=== PATIENT | female | born 1980 | race Caucasian/White ===

== ENCOUNTER 2020-06-15 01:28 | Emergency (ER) | payer BC ==
[~2020-06-15] VITALS: Ht 163 cm; Wt 79.4 kg
[2020-06-15] MEDS ORDERED: TRAZ-227 (01:38)
[2020-06-15] MEDS ORDERED: LACTATED RINGERS 1,000 ML IV ONE (01:45)
[2020-06-15] MEDS ORDERED: ONDANSETRON 4 MG/2 ML (SDV) Z0FRAN IVP ONE (01:45)
[2020-06-15 01:48] LABS: BILIRUBIN,URINE NEGATIVE (NEGATIVE); CLARITY,URINE CLEAR; COLOR,URINE YELLOW; GLUCOSE, URINE (UA) NEGATIVE (NEGATIVE); KETONES,URINE NEGATIVE (NEGATIVE); LEUKOCYTE ESTERASE ,URINE 1+ (NEGATIVE); NITRITE,URINE POSITIVE (NEGATIVE); PH,URINE 5.5 (5-9); PROTEIN,URINE 1+ (NEGATIVE)
[2020-06-15 01:56] LABS: BACTERIA,URINE LARGE /HPF; SQUAMOUS EPITHELIAL CELL,UR 25-50 /HPF
--- NOTE | 2020-06-15 01:57 | ED GU-Female ---
General Chief Complaint: - Urinary Stated Complaint: KIDNEY PAIN,VOMITING,FEVER 99. Nursing Triage Note: c/o constant left flank pain x2hrs. Nursing Sepsis Screen: No Definite Risk Source: patient Exam Limitations: no limitations (SHAGUFTA ARELLANO MED STUDENT) History of Present Illness Date Seen by Provider: Jun 15, 2020 Time Seen by Provider: 01:50 Initial Comments Pt is a 40yo female who presents to the ED complaining of 10/10 L flank pain. She states this started around 3 hours ago is stabbing in nature and radiates to her groin. Nothing makes it better, movement makes it worse. She reports she has had a kidney stone in the past and had surgery to remove it and this feels similar. She also reports having a kidney infection last year. Denies chest pain, SOB, constipation or diarrhea. Also denies dysuria or hematuria. She reports feeling feverish and her temperature at home was 100. Also has been nauseous and vomited. She has been trying to get and her LMP was about 2.5 weeks ago. Timing/Duration: just prior to arrival Severity/Quality: severe Location: left flank Radiation: LLQ, groin (left) Activities at Onset: none Modifying Factors: Improves With Movement Associated Symptoms: fever/chills, nausea/vomiting (SHAGUFTA ARELLANO MED KATRIN DENT) Allergies and Home Medications Allergies Coded Allergies: No Known Allergies (Verified Allergy, Unknown, 03/05/08) Patient Home Medication List Home Medication List Reviewed: Yes (WENDI MEJIAS MD) Review of Systems Review of Systems Constitutional: chills, fever EENTM: no symptoms reported Respiratory: No short of breath Cardiovascular: No chest pain, No edema Gastrointestinal: abdominal pain (LLQ/groin); No constipation, No diarrhea; nausea, vomiting Genitourinary: denies burning, denies dysuria; flank pain (left); denies hematuria Musculoskeletal: no symptoms reported Skin: no symptoms reported Psychiatric/Neurological: No Symptoms Reported Endocrine: No Symptoms Reported Hematologic/Lymphatic: No Symptoms Reported (SHAGUFTA ARELLANO MED STUDENT) Past Srkuibq-Jzyhru-Nzilci Hx Patient Social History Alcohol Use: Rarely Uses Smoking Status: Current Everyday Smoker Type Used: Cigarettes 2nd Hand Smoke Exposure: Yes Recent Infectious Disease Expo: No Recent Hopitalizations: No (ARELLANO,SHAGUFTA,MED STUDENT) Immunizations Up To Date Tetanus Booster (TDap): Unknown (SHAGUFTA ARELLAON MED STUDENT) Seasonal Allergies Seasonal Allergies: No (SHAGUFTA ARELLANO MED STUDENT) Past Medical History Surgeries: Yes (KIDNEY STONES) Respiratory: No Cardiac: No Neurological: No : No Reproductive Disorders: No Genitourinary: Yes Kidney Stones Gastrointestinal: No Musculoskeletal: No Endocrine: No HEENT: No Cancer: No Psychosocial: No Integumentary: No Blood Disorders: No (SHAGUFTA ARELLANO MED STUDENT) Physical Exam Vital Signs Vital Signs - First Documented 06/15/20 01:32 Temp 36.5 Pulse 84 Resp 20 B/P (MAP) 135/85 (102) Pulse Ox 99 O2 Delivery Room Air (WENDI MEJIAS MD) Vital Signs Capillary Refill : Less Than 3 Seconds (SHAGUFTA ARELLANO MED STUDENT) Height, Weight, BMI Height: '" Weight: lbs. oz. kg; 29.00 BMI Method: General Appearance: WD/WN, moderate distress, other (appears very uncomfortable) HEENT: PERRL/EOMI Neck: non-tender, full range of motion Cardiovascular: regular rate, rhythm, no murmur Respiratory: lungs clear, no respiratory distress, no accessory muscle use Gastrointestinal: normal bowel sounds, soft; No guarding, No rebound; tender ness (with deep palpation of LLQ) Back: CVA tenderness (L) Extremities: non-tender, no pedal edema, no calf tenderness, normal capillary refill Neurologic/Psychiatric: no motor/sensory deficits, alert, normal mood/affect, oriented x 3 Skin: normal color, warm/dry (SHAGUFTA ARELLANO MED STUDENT) Progress/Results/Core Measures Suspected Sepsis Recent Fever Within 48 Hours: No Infection Criteria Present: None New/Unexplained Altered Menta: No Sepsis Screen: No Definite Risk SIRS Temperature: Pulse: 84 Respiratory Rate: 20 Laboratory Tests 06/15/20 01:45: White Blood Count 15.9H Blood Pressure 135 /85 Mean: 102 Laboratory Tests 06/15/20 01:45: Creatinine 0.86, Platelet Count 276, Total Bilirubin 0.3 (SHAGUFTA ARELLANO MED STUDENT) Results/Orders Lab Results Laboratory Tests Test 06/15/20 01:36 06/15/20 01:45 06/15/20 03:45 Range/Units Urine Color YELLOW YELLOW Urine Clarity CLEAR CLEAR Urine pH 5.5 6.0 5-9 Urine Specific [place] >=1.030 1.025 H 1.016-1.022 Urine Protein 1+ H TRACE H NEGATIVE Urine Glucose (UA) NEGATIVE NEGATIVE NEGATIVE Urine Ketones NEGATIVE NEGATIVE NEGATIVE Urine Nitrite POSITIVE H NEGATIVE NEGATIVE Urine Bilirubin NEGATIVE NEGATIVE NEGATIVE Urine Urobilinogen 0.2 0.2 < = 1.0 MG/DL Urine Leukocyte Esterase 1+ H 1+ H NEGATIVE Urine RBC (Auto) 2+ H 2+ H NEGATIVE Urine RBC 10-25 H 10-25 H /HPF Urine WBC 5-10 H 10-25 H /HPF Urine Squamous Epithelial Cells 25-50 H 2-5 /HPF Urine Crystals NONE NONE /LPF Urine Bacteria LARGE H FEW H /HPF Urine Casts NONE NONE /LPF Urine Mucus NEGATIVE NEGATIVE /LPF Urine Culture Indicated YES YES White Blood Count 15.9 H 4.3-11.0 10^3/uL Red Blood Count 4.29 3.80-5.11 10^6/uL Hemoglobin 13.6 11.5-16.0 g/dL Hematocrit 40 35-52 % Mean Corpuscular Volume 92 80-99 fL Mean Corpuscular Hemoglobin 32 25-34 pg Mean Corpuscular Hemoglobin Concent 34 32-36 g/dL Red Cell Distribution Width 13.0 10.0-14.5 % Platelet Count 276 130-400 10^3/uL Mean Platelet Volume 11.3 9.0-12.2 fL Immature Granulocyte % (Auto) 1 % Neutrophils (%) (Auto) 73 42-75 % Lymphocytes (%) (Auto) 17 12-44 % Monocytes (%) (Auto) 8 0-12 % Eosinophils (%) (Auto) 1 0-10 % Basophils (%) (Auto) 1 0-10 % Neutrophils # (Auto) 11.6 H 1.8-7.8 10^3/uL Lymphocytes # (Auto) 2.8 1.0-4.0 10^3/uL Monocytes # (Auto) 1.2 H 0.0-1.0 10^3/uL Eosinophils # (Auto) 0.2 0.0-0.3 10^3/uL Basophils # (Auto) 0.1 0.0-0.1 10^3/uL Immature Granulocyte # (Auto) 0.1 0.0-0.1 10^3/uL Neutrophils % (Manual) 75 % Lymphocytes % (Manual) 19 % Monocytes % (Manual) 5 % Eosinophils % (Manual) 1 % Blood Morphology Comment NORMAL Sodium Level 137 135-145 MMOL/L Potassium Level 3.9 3.6-5.0 MMOL/L Chloride Level 108 H 98-107 MMOL/L Carbon Dioxide Level 16 L 21-32 MMOL/L Anion Gap 13 5-14 MMOL/L Blood Urea Nitrogen 8 7-18 MG/DL Creatinine 0.86 0.60-1.30 MG/DL Estimat Glomerular Filtration Rate > 60 BUN/Creatinine Ratio 9 Glucose Level 107 H 70-105 MG/DL Calcium Level 9.0 8.5-10.1 MG/DL Corrected Calcium 8.9 8.5-10.1 MG/DL Total Bilirubin 0.3 0.1-1.0 MG/DL Aspartate Amino Transf (AST/SGOT) 11 5-34 U/L Alanine Aminotransferase (ALT/SGPT) 16 0-55 U/L Alkaline Phosphatase 69 40-136 U/L Total Protein 6.6 6.4-8.2 GM/DL Albumin 4.1 3.2-4.5 GM/DL Serum Test, Qualitative NEGATIVE NEGATIVE (WENDI MEJIAS MD) My Orders Orders - WENDI MEJIAS MD Cbc With Automated Diff (06/15/20 01:43) Comprehensive Metabolic Panel (06/15/20 01:43) Ua Culture If Indicated (06/15/20 01:43) Ed Iv/Invasive Line Start (06/15/20:43) Lactated Ringers (Lr 1000 Ml Iv Solution (06/15/20 01:45) Ondansetron Injection (Zofran Injectio (06/15/20 01:45) Fentanyl Inj (Sublimaze Injection) (06/15/20 02:00) Urine Culture (06/15/20 01:36) Manual Differential (06/15/20 01:45) Hcg,Qualitative Serum (06/15/20 02:22) Morphine Injection (Morphine Injection (06/15/20 02:26) Ceftriaxone For Iv Use (Rocephin For I (06/15/20 02:30) Ct Abd/Pelvis Wo(Kidney Stone) (06/15/20 02:27) Ketorolac Injection (Toradol Injection) (06/15/20 02:45) Ua Culture If Indicated (06/15/20 03:38) Urine Culture (06/15/20 03:45) Morphine Injection (Morphine Injection (06/15/20 04:16) (WENDI MEJIAS MD) Medications Given in ED Current Medications Medications Dose Ordered Sig/Ced Route Start Time Stop Time Status Last Admin Dose Admin Ceftriaxone Sodium 1000 mg/ Sterile Water 10 ml @ 200 mls/hr ONCE ONCE IV 06/15/20 02:30 06/15/20 02:32 DC 06/15/20 02:39 200 MLS/HR Fentanyl Citrate 50 mcg ONCE ONCE IVP 06/15/20 02:00 06/15/20 02:01 DC 06/15/20 01:58 50 MCG Ketorolac Tromethamine 30 mg ONCE ONCE IVP 06/15/20 02:45 06/15/20 02:46 DC 06/15/20 02:39 30 MG Lactated Ringer's 1,000 ml @ 0 mls/hr Q0M ONCE IV 06/15/20 01:45 06/15/20 01:46 DC 06/15/20 01:58 0 MLS/HR Ondansetron HCl 8 mg ONCE ONCE IVP 06/15/20 01:45 06/15/20 01:46 DC 06/15/20 02:00 8 MG (WENDI MEJIAS MD) Vital Signs/I&O 06/15/20 06/15/20 01:32 04:30 Temp 36.5 37.3 Pulse 84 79 Resp 20 16 B/P (MAP) 135/85 (102) 127/82 Pulse Ox 99 98 O2 Delivery Room Air Room Air (WENDI MEJIAS MD) Vital Signs/I&O Capillary Refill : Less Than 3 Seconds (SHAGUFTA ARELLANO,MED STUDENT) Blood Pressure Mean: 102 Progress Note #1: Time: 04:05 Progress Note Patient was found to have pyuria in context of leukocytosis and symptoms suspicious for ureteral stone. CT was obtained demonstrating a 7 mm obstructing stone in the left proximal ureter with perinephric stranding. She likely has associated pyelonephritis. She did not meet septic criteria. Rocephin was administered. Pain was initially treated with fentanyl. Residual pain was treated with morphine and Toradol. Zofran was given for nausea. She received IV fluids. I discussed the case with Dr. Martinez. He is not available this weekend and recommended transfer. Case was reviewed with Dr. Ramirez, urologist at [facility] in [place]. He is agreeable to transfer. Dr. Ortega is the accepting hospitalist. Progress Note #2: Time: 04:22 Progress Note Patient requested transfer by private vehicle. Her will drive her. Vital signs are stable. She would like additional treatment of pain prior to departure. An additional dose of morphine has been ordered. (WENDI MEJIAS MD) Diagnostic Imaging Diagonstic Imaging: CT Plain Films/CT/US/NM/MRI: abdomen, pelvis Comments CT abdomen and pelvis viewed by me and stat rad report reviewed. There is a 7 mm obstructing stone in the left proximal ureter with hydronephrosis and perinephric stranding. (WENDI MEJIAS MD) Departure Impression Primary Impression: Hydronephrosis with urinary obstruction due to ureteral calculus Additional Impressions: Pyelonephritis Nausea and vomiting Qualified Codes: R11.2 - Nausea with vomiting, unspecified Disposition: 02 XFER SHT-TRM HOSP Condition: Improved Transfer Transfer Reason: Exceeds level of care Time Spoke to Accepting Phy: 03:40 Transfer Progress Notes Transfer accepted by Dr. Ortega at [facility] in [place] Transfer Time: 04:30 Transfer Facility: [facility] Method of Transfer: EMS (WENDI MEJIAS MD) Departure-Patient Inst. Referrals: SHELLEY MICHAEL MD (PCP/Family) Primary Care Physician Medical Student Attestation and Attending Note: I have personally interviewed and examined this patient along with Shagufta Arellano, MS 4. I have reviewed student documentation including history, physical, and assessments. I agree with the documentation except where otherwise noted. Exam: General: Alert, oriented, mild distress, well developed HEENT: Normocephalic and atraumatic Heart: Regular rate and rhythm without murmur Lungs: Clear to auscultation bilaterally with normal effort Abdomen: Soft, tenderness in the left flank and left abdomen, nondistended, normal bowel sounds Neuropsych: Alert, oriented, no focal deficits Skin: Warm and dry without rashes (WENDI MEJIAS MD) SHAGUFTA ARELLANO,MED STUDENT Jun 15, 2020 01:57 WENDI MEJIAS MD Jun 15, 2020 04:08
[2020-06-15] MEDS ORDERED: fentaNYL INJ 100 MCG/2 ML AMP IVP ONE (02:00)
[2020-06-15 02:08] LABS: BASOPHILS # (AUTO) 0.1 10^3/uL (0.0-0.1); BASOPHILS % (AUTO) 1 % (0-10); EOSINOPHILS # (AUTO) 0.2 10^3/uL (0.0-0.3); EOSINOPHILS % (AUTO) 1 % (0-10); HEMATOCRIT 40 % (35-52); HEMOGLOBIN 13.6 g/dL (11.5-16.0); LYMPHOCYTES # (AUTO) 2.8 10^3/uL (1.0-4.0); LYMPHOCYTES % (AUTO) 17 % (12-44); MEAN CORPUSCULAR HEMOGLOBIN 32 pg (25-34); MEAN CORPUSCULAR HGB CONC 34 g/dL (32-36); MEAN CORPUSCULAR VOLUME 92 fL (80-99); MEAN PLATELET VOLUME 11.3 fL (9.0-12.2); MONOCYTES # (AUTO) 1.2 10^3/uL (0.0-1.0); MONOCYTES % (AUTO) 8 % (0-12); NEUTROPHILS # (AUTO) 11.6 10^3/uL (1.8-7.8); NEUTROPHILS % (AUTO) 73 % (42-75); PLATELET COUNT 276 10^3/uL (130-400); WHITE BLOOD COUNT 15.9 10^3/uL (4.3-11.0)
[2020-06-15 02:17] LABS: ALBUMIN 4.1 GM/DL (3.2-4.5); CHLORIDE 108 MMOL/L (98-107); POTASSIUM 3.9 MMOL/L (3.6-5.0); SODIUM 137 MMOL/L (135-145)
[2020-06-15 02:20] LABS: GLUCOSE 107 MG/DL (70-105); TOTAL PROTEIN 6.6 GM/DL (6.4-8.2)
[2020-06-15 02:21] LABS: BILIRUBIN,TOTAL 0.3 MG/DL (0.1-1.0); CARBON DIOXIDE 16 MMOL/L (21-32)
[2020-06-15 02:23] LABS: ALKALINE PHOSPHATASE 69 U/L (40-136); CREATININE SERUM 0.86 MG/DL (0.60-1.30); GFR ESTIMATED > 60
[2020-06-15 02:24] LABS: BUN/CREATININE RATIO 9
[2020-06-15 02:26] LABS: ALANINE AMINOTRANSFERASE 16 U/L (0-55)
[2020-06-15] MEDS ORDERED: morphine INJ 10 MG/ML 1ML (SYR OR VIAL) IVP STA ×2 (02:26→04:16)
[2020-06-15 02:27] LABS: EOSINOPHILS % (MANUAL) 1 %; LYMPHOCYTES % (MANUAL) 19 %; MONOCYTES % (MANUAL) 5 %; NEUTROPHILS % (MANUAL) 75 %; RBC MORPH NORMAL
[2020-06-15] MEDS ORDERED: cefTRIAXone FOR IV USE 1,000 MG in WATER (STERILE) FOR INJECTION 10 ML IV ONE (02:30)
[2020-06-15] MEDS ORDERED: KETOROLAC 30 MG/ML VIAL IVP ONE (02:45)
[2020-06-15 03:52] LABS: BILIRUBIN,URINE NEGATIVE (NEGATIVE); CLARITY,URINE CLEAR; COLOR,URINE YELLOW; GLUCOSE, URINE (UA) NEGATIVE (NEGATIVE); KETONES,URINE NEGATIVE (NEGATIVE); LEUKOCYTE ESTERASE ,URINE 1+ (NEGATIVE); NITRITE,URINE NEGATIVE (NEGATIVE); PROTEIN,URINE TRACE (NEGATIVE)
[2020-06-15 04:01] LABS: BACTERIA,URINE FEW /HPF
[2020-06-15 04:30] VITALS: BP 127/82
--- NOTE | 2020-06-15 07:42 | Diagnostic Imaging Report ---
PROCEDURE: CT urinary tract, rule out kidney stone. TECHNIQUE: Multiple contiguous axial images were obtained through the abdomen and pelvis without the use of intravenous contrast. Auto Exposure Controls were utilized during the CT exam to meet ALARA standards for radiation dose reduction. INDICATION: Left flank pain. COMPARISON: CT abdomen and pelvis without contrast 05/09/2015. FINDINGS: Renal stone in the left ureteropelvic junction measuring 0.7 cm resulting in moderate to severe left hydronephrosis and enlargement of the left kidney. Nonobstructing calyceal tip renal stone in the upper pole of the right kidney measuring up to 0.4 cm. The lung bases are clear. The gallbladder, pancreas, spleen, adrenals and bladder are negative. The appendix is not well seen and may be surgically absent. No suspicious inflammatory findings in the region of the cecum. Reproductive structures are grossly unremarkable. No free intraperitoneal air or fluid. No lymphadenopathy. No evidence of bowel obstruction. No acute osseous findings. IMPRESSION: A 0.7 cm renal stone in the left ureteropelvic junction resulting in moderate to severe left hydronephrosis. Dictated by: Dictated on workstation # [id number]
== END 2020-06-15 04:30 | disposition short-term general hospital (02) ==
LOC: EDUNIT# 01:28 → ER 01:30
DX: N13.6 Pyonephrosis (principal); F17.210 Nicotine dependence, cigarettes, uncomplicated
CPT/HCPCS: 36415; 74176; 80053; 81000; 84703; 85007; 85027; 87077; 87088

== ENCOUNTER → 2020-06-19 | Outpatient (CLI) | payer BC ==
[~2020-06-19] MED LIST: CIPR-225 PO; HYDR-3817 PO; TMSL.4C PO; TRAZ-227 PO
--- NOTE | 2020-06-19 15:42 | Diagnostic Imaging Report ---
INDICATION: Left-sided ureteral calculus with obstruction. COMPARISON: 06/15/2020 FINDINGS: Two frontal supine radiographic views of the abdomen were obtained and demonstrate interval placement of a left-sided double-J ureteral stent. Several extraosseous calcifications are noted projecting over the pelvis and may correspond to venous phleboliths seen on previous CT. No unexpected radiopaque foreign bodies are identified. Small bowel loops are nondistended. There is no large collection of free intraperitoneal air. IMPRESSION: 1. New left-sided double-J ureteral stent. 2. Probable multiple pelvic phleboliths. Distal ureteral or urinary bladder calculus is not entirely excluded. Dictated by: Dictated on workstation # [id number]
== END ==
LOC: RAD 14:51
PROVIDERS: ATTEND Urology
DX: N20.1 Calculus of ureter (principal); Z96.0 Presence of urogenital implants
CPT/HCPCS: 74018

== ENCOUNTER 2020-06-20 09:59 | Outpatient (CLI) | payer BC ==
[~2020-06-20] VITALS: Ht 162.6 cm; Wt 81.8 kg
[~2020-06-20 09:59] MED LIST changes: -CIPR-225 PO; -HYDR-3817 PO; -TMSL.4C PO
[2020-06-20] MEDS ORDERED: TMSL.4C PO (12:54)
[2020-06-20] MEDS ORDERED: HYDR-3817 PO (12:54)
[2020-06-20] MEDS ORDERED: CIPR-225 PO (12:54)
== END 2020-06-20 13:10 | disposition home or self-care (01) ==
LOC: PREOP 09:59
PROVIDERS: ATTEND Urology
DX: Z01.818 Encounter for other preprocedural examination (principal)

== ENCOUNTER 2020-06-25 06:32 | Day surgery (SDC) | payer BC ==
[~2020-06-25] VITALS: Ht 162 cm; Wt 81.8 kg
[2020-06-25] VITALS (8 sets, daily range): BP systolic 98–123; BP diastolic 58–76
[~2020-06-25 06:32] MED LIST changes: +CIPR-225 PO; +HYDR-3817 PO; +TMSL.4C PO
[2020-06-25] MEDS ORDERED: fentaNYL INJ 100 MCG/2 ML AMP ONE (06:57)
[2020-06-25] MEDS ORDERED: MIDAZOLAM 2 MG/2 ML (VERSED) VIAL ONE (06:58)
[2020-06-25] MEDS ORDERED: proPOfol 200 MG/20 ML (DIPRIVAN) VIAL IV ONE (06:58)
[2020-06-25] MEDS ORDERED: LIDOCAINE PF 2% 5 ML (XYLOCAINE) VIAL ONE (06:58)
[2020-06-25] MEDS ORDERED: SEVOFLURANE (ULTANE) 15 ML INHAL SOLN ONE (07:00)
[2020-06-25] MEDS ORDERED: cefTRIAXone FOR IV USE 1,000 MG in WATER (STERILE) FOR INJECTION 10 ML IV ONE (07:00)
[2020-06-25] MEDS ORDERED: ONDANSETRON 4 MG/2 ML (SDV) Z0FRAN ONE (07:00)
--- NOTE | 2020-06-25 07:10 | Progress Note-Pre Operative ---
Pre-Operative Progress Note H&P Reviewed The H&P was reviewed, patient examined and no changes noted. Date Seen by Provider: Jun 25, 2020 Time Seen by Provider: 07:10 Date H&P Reviewed: Jun 25, 2020 Time H&P Reviewed: 07:10 Pre-Operative Diagnosis: LT URETERAL STONE BARRY REESE MD Jun 25, 2020 07:10
--- NOTE | 2020-06-25 07:14 | Progress Note-Post Operative ---
Post-Operative Progess Note Surgeon (s)/Boat Carpenter (s) Surgeon BARRY REESE MD Boat Carpenter: NONE Pre-Operative Diagnosis LT URETERAL STONE Post-Operative Diagnosis SAME Procedure & Operative Findings Date of Procedure 06/25/20 Procedure Performed/Findings CYSTOSCOPY WITH LT STENT REMOVAL, LT URETEROSCPY WITH ATTEMPTED LITHOTRIPSY, AND LT ESWL Anesthesia Type GENERAL Estimated Blood Loss Estimated blood loss (mL): NONE Specimens/Packing Specimens Removed NONE Packing: NONE BARRY REESE MD Jun 25, 2020 07:14
[2020-06-25] MEDS: LACTATED RINGERS 1,000 ML IV PRN ×2 (07:15→09:05)
--- NOTE | 2020-06-25 07:15 | Discharge Inst-Urology ---
Discharge Inst-Urology Reconcile Patient Problems Problems Reviewed?: Yes Final Diagnosis LT URETERAL STONE Patient Instructions/Follow Up Plan/Assessment/Instructions Please make appointment to been seen in office Saturday 07/08, KUB prior to it. KUB on way home Post ESWL instructions Increase oral fluids for 48 hours and then as needed. Diet and Activity as tolerated. If questions or concerns contact your physician Or seek help at emergency department. BARRY REESE MD Jun 25, 2020 07:15
--- NOTE | 2020-06-25 08:52 | Diagnostic Imaging Report ---
INDICATION: Preop FINDINGS: Left-sided double-J stent projects in good alignment. Faint calcification like density projects over the upper pole of the right kidney. This could be bowel content or upper pole 3 mm kidney stone. IMPRESSION: Double-J in good alignment on the left. Probable right upper pole renal calculus. Dictated by: Dictated on workstation # [id number]
[2020-06-25] MEDS ORDERED: FUROSEMIDE 40 MG/4 ML INJ (LASIX) ONE (08:53)
[2020-06-25] MEDS ORDERED: KETOROLAC 30 MG/ML VIAL ONE (08:53)
--- NOTE | 2020-06-25 09:34 | Anesthesia-General Post-Op ---
General Patient Condition Mental Status/LOC: Same as Preop Cardiovascular: Satisfactory Nausea/Vomiting: Absent Respiratory: Satisfactory Pain: Controlled Complications: Absent Post Op Complications Complications None Follow Up Care/Instructions Patient Instructions None needed. Anesthesia/Patient Condition Patient Condition Patient is doing well, no complaints, stable vital signs, no apparent adverse anesthesia problems. No complications reported per nursing. ANNE CHAUDHARI CRNA Jun 25, 2020 09:34
[2020-06-25] MEDS ORDERED: PHEN-639 PO (09:44)
[2020-06-25] MEDS ORDERED: NITR-65 PO (09:44)
[2020-06-25] MEDS ORDERED: TRM50T PO (09:44)
[2020-06-25] MEDS ORDERED: TMSL.4C PO (09:44)
[2020-06-25] MEDS ORDERED: ONDANSETRON 4 MG/2 ML (SDV) Z0FRAN IVP PRN (09:45)
[2020-06-25] MEDS ORDERED: morphine INJ 10 MG/ML 1ML (SYR OR VIAL) IVP ONE (09:45)
--- NOTE | 2020-06-25 10:55 | Diagnostic Imaging Report ---
INDICATION: Post ESWL. COMPARISON: 06/25/2020. FINDINGS: A right upper pole renal calculus remains visualized. The left double-J stent has been removed. There are some pelvic calcifications with central lucency, compatible with phleboliths, unchanged. No adverse development. IMPRESSION: Stent removal. No other appreciable change. Dictated by: Dictated on workstation # [id number]
--- NOTE | 2020-06-25 16:46 | OPERATIVE REPORT ---
DATE OF SERVICE: 06/25/2020 PREOPERATIVE DIAGNOSIS: Left proximal ureteral stone. POSTOPERATIVE DIAGNOSIS: Left proximal ureteral stone. OPERATION PERFORMED: Cystoscopy, removal of left ureteral stent, left ureteroscopy with stone disimpaction. Attempted lithotripsy and left ESWL. SURGEON: Mckinley Reese MD ANESTHESIA: General. COMPLICATIONS: None. DESCRIPTION OF PROCEDURE: Under satisfactory general anesthesia, the patient in lithotomy position, genitalia were prepped and draped in the usual sterile fashion. Cystoscope was introduced under vision. The distal end of the left stent was grasped with grasping forceps and slowly removed to confirm that the calcification at the very proximal part of the ureter is indeed the stone. There was no other calcification along the ureter. I removed the cystoscope, inserted a 6.9 [place] semi-rigid ureteroscope all the way up to the stone. The stone was then impacted in the ureter. I was able to disimpact it posteriorly into the kidney, chasing it into the kidney. I attempted to lithotripsy it with the . However, the angle of the semirigid could not get the straight shot to the stone. I discontinued further attempt, removed the ureteroscope, reinserted the cystoscope to empty the bladder, moved the patient to the ESWL bed, localized the stone. Delivered shocks at kV of 6. Total of 2000 shocks completely fragmented the stone that was not visualized anymore. The patient received 30 mg of Lasix and 40 mg of Toradol IV at the end of the procedure. She tolerated the procedure and anesthesia well and was sent to recovery room in stable condition. Job ID: [id number] DocumentID: [id number] Dictated Date: 06/25/2020 09:14:57 Check Out Clerk Date: 06/25/2020 16:46:19 Dictated By: MCKINLEY REESE MD
== END 2020-06-25 11:00 | disposition home or self-care (01) ==
LOC: SDC 06:32
PROVIDERS: ATTEND Urology
DX: N20.1 Calculus of ureter (principal); Z91.040 Latex allergy status
CPT/HCPCS: 74018; 76000; 84703; 87081

== ENCOUNTER → 2020-07-17 | Outpatient (CLI) | payer BC ==
[~2020-07-17] MED LIST changes: +NITR-65 PO; +PHEN-639 PO; +TRM50T PO
--- NOTE | 2020-07-17 11:50 | Diagnostic Imaging Report ---
INDICATION: Renal stone. TIME OF EXAM: 11:00 AM. COMPARISON: Correlation is made with the prior radiograph from 06/25/2020. FINDINGS: The calcific density overlying the upper pole of the right renal shadow appears unchanged. There is a small calcific density in the midportion of the left kidney as well. No definite calculi along the course of the ureters is seen. Pelvic calcifications appear to be similar although there are some left para-midline calcifications in the distribution of the distal left ureter and distal ureteric calculi cannot be entirely excluded. IMPRESSION: Bilateral renal calculi. There are indeterminate calcifications in the left para-midline pelvis. Dictated by: Dictated on workstation # [id number]
== END ==
LOC: RAD 10:37
PROVIDERS: ATTEND Urology
DX: N20.0 Calculus of kidney (principal); N73.8 Other specified female pelvic inflammatory diseases
CPT/HCPCS: 74018

== ENCOUNTER → 2021-07-17 | Outpatient (CLI) | payer BC ==
--- NOTE | 2021-07-18 10:47 | Diagnostic Imaging Report ---
Indication: Baseline digital screening with CAD CAD is utilized. The current study was also evaluated with a Computer Aided Detection (CAD) system. Density 2. No breast mass, spiculated lesion, architectural distortion, suspicious calcifications or evidence for malignancy. Skin, nipples and axilla appeared normal. IMPRESSION: BI-RADS Category 1 ACR BI-RADS Category 1: Negative. Result letter will be mailed to the patient. Note: At least 10% of breast cancer is not imaged by mammography. Dictated by: Dictated on workstation # [id number]
== END ==
LOC: RAD 15:30
PROVIDERS: ATTEND Family Medicine
DX: Z12.31 Encounter for screening mammogram for malignant neoplasm of breast (principal)
CPT/HCPCS: 77063; 77067

== ENCOUNTER → 2022-10-20 | Outpatient (CLI) | payer BC, OTHER ==
--- NOTE | 2022-10-20 14:49 | Diagnostic Imaging Report ---
EXAMINATION: Left great toe three views. HISTORY: Toe pain. COMPARISON: None available. FINDINGS: Alignment is normal. No fracture is seen. Joint spaces are normal. IMPRESSION: 1. No fracture in the left great toe. Dictated by: Dictated on workstation # [id number]
== END ==
LOC: RAD 14:20
PROVIDERS: ATTEND Family Medicine
DX: M79.672 Pain in left foot (principal)
CPT/HCPCS: 73660